=== PATIENT | female | born 1990 | race Caucasian/White ===

== ENCOUNTER 2024-08-08 12:07 | Emergency (ER) | payer MEDICAID, SELFPAY ==
--- NOTE | ~2024-08-08 | XR_ITS ---
EXAMINATION: XR CHEST 2 VIEWS HISTORY: sob/cough COMPARISON: There are no prior studies for comparison. FINDINGS: PA and lateral views of the chest are submitted. The lungs are expanded and clear. There is no pleural effusion, pneumothorax, or pulmonary vascular congestion. The heart is normal in size. The bones are intact. XR/XR chest 2V IMPRESSION: Clear lungs. Electronically signed by: Jesse Rodriguez MD 08/08/2024 01:08 PM DEMARIO LOPEZ
[2024-08-08 12:15] VITALS: BP 112/84; PULSE 117; O2SAT 97; BMI 39.1
[2024-08-08 12:21] VITALS: BP 112/76; PULSE 112; RESP 18; TEMP 36.9; O2SAT 93
[2024-08-08 12:29] LABS: MANUAL DIFF FLAG NO
[2024-08-08 12:30] LABS: Basophils Percent Auto 0.6 % (0-2); Eosinophils Absolute Auto 0.3 X10*3/uL (0.0-0.4); Eosinophils Percent Auto 5.3 % (0-4); Hematocrit 40.9 % (37.0-47.0); Hemoglobin 13.4 g/dl (12.0-16.0); Imm Gran Abs Auto 0.02 X10*3/uL (0.00-0.03); Imm Gran Pct Auto 0.4 % (0.0-0.4); Lymphocytes Absolute Auto 0.9 X10*3/uL (1.2-4.9); Lymphocytes Percent Auto 18.1 % (20-40); Mean Corpuscular HGB Conc 32.8 g/dl (31.0-35.0); Mean Corpuscular Hemoglobin 28.3 pg (27.0-33.0); Mean Corpuscular Volume 86.5 fL (80.0-98.0); Monocytes Absolute Auto 0.6 X10*3/uL (0.1-1.2); Monocytes Percent Auto 12.8 % (2-11); Neutrophils Absolute Auto 3.1 x10*3/uL (2.0-8.3); Neutrophils Percent Auto 62.8 % (45-73); Platelet Count 276 X10*3/uL (160-400); Red Blood Count 4.73 X10*6/uL (4.20-5.50); Red Cell Distribution Width 15.5 % (11.0-16.0); White Blood Count 4.9 X10*3/uL (4.8-10.8)
--- NOTE | 2024-08-08 12:42 | ED.GENADULT ---
HPI - General Adult General Chief complaint: Upper Respiratory Symptoms Stated complaint: FEVER,CHILLS,NAUSEA,MILD SOB,SEC 21 PER EMS Time Seen by Provider: 08/08/24 12:14 Source: patient Mode of arrival: ambulatory Limitations: no limitations History of Present Illness HPI narrative: This is a 34-year-old woman with a past medical history of asthma who was brought in by EMS from [facility] on a section for evaluation of fever, chills, myalgias, dyspnea and dry cough for 1 week. Patient states that she last used albuterol at around 11:00 a.m.. She states taking 3 puffs. She reports no sputum production. She states associated dyspnea without chest pain. She states no syncope. She states no GI or symptoms. She states no trauma. Related Data Previous Rx's ?Medication ?Instructions ?Recorded prednisone 50 mg tablet 50 mg PO DAILY 4 days #4 tabs 08/08/24 Allergies Allergy/AdvReac Type Severity Reaction Status Date / Time No Known Allergies Allergy Verified 08/08/24 12:17 Review of Systems Review of Systems: ROS as per HPI [facility] Social History Social History Advance Directives: No Advance Directives Information Provided: No Do you have a plan to hurt others: No Plan Physical Exam ED Vital Signs: Vital Signs - 24 hr 08/08/24 12:21 08/08/24 13:03 Temperature 98.5 F Pulse Rate 112 H 112 H Respiratory Rate 18 18 Blood Pressure 112/76 Pulse Oximetry 93 Oxygen Delivery Method Room Air BMI result Body Mass Index 39.1 Gen: NAD, AOx3 HEENT: NCAT, EOMI, normal conjunctiva CV: RRR Pulm: Scattered expiratory wheezes, good aeration to the bases, no conversational dyspnea, no increased work of breathing GI: Soft, NTND Neuro: Grossly non focal Medications Administered Discontinued Medications Generic Name Dose Route Start Last Admin Trade Name Freq PRN Reason Stop Dose Admin Albuterol Sulfate 4 puff 08/08/24 12:41 08/08/24 13:02 Albuterol Sulfate 90 Mcg 8 Gm Inhaler INHALE 08/08/24 12:42 4 puff ONCE ONE Administration Medical Decision Making Medical Decision Making [facility] Narrative: Differential diagnosis includes, but is not limited toViral URI, pneumonia, asthma exacerbation. Patient is afebrile and hemodynamically stable on room air. Exam is benign and reassuring albeit notable for scattered expiratory wheezes consistent with bronchospasm for which patient is provided corticosteroids and albuterol. I reviewed the patient's labs, EKG, viral testing and chest x-ray as below. On re-examination, patient is well-appearing and in no acute distress. There is no indication for further emergent evaluation in this otherwise well-appearing patient as above. Patient is provided written and verbal instructions, educational materials, prescription for prednisone, recommendations for outpatient follow-up, strict return precautions and teach back is performed. Patient states understanding and agreement with plan of care. Patient is discharged home in stable and improved condition. Admission/Observation Consideration of admission/observation: Escalation of care including admission/observation considered Lab Data MDM Lab Attestation statement: I reviewed the patient's lab results. CBC and metabolic panel are unremarkable. Patient is negative for COVID-19, influenza and RSV. 08/08/24 12:25 08/08/24 12:25 Labs: Lab Results 08/08/24 Range/Units 12:25 WBC 4.9 (4.8-10.8) X10*3/uL RBC 4.73 (4.20-5.50) X10*6/uL Hgb 13.4 (12.0-16.0) g/dl Hct 40.9 (37.0-47.0) % MCV 86.5 (80.0-98.0) fL MCH 28.3 (27.0-33.0) pg MCHC 32.8 (31.0-35.0) g/dl RDW 15.5 (11.0-16.0) % Plt Count 276 (160-400) X10*3/uL MPV 10.0 (9.4-12.3) fL Immature Gran % (Auto) 0.4 (0.0-0.4) % Neut % (Auto) 62.8 (45-73) % Lymph % (Auto) 18.1 L (20-40) % [place] % (Auto) 12.8 H (2-11) % Eos % (Auto) 5.3 H (0-4) % Baso % (Auto) 0.6 (0-2) % Lymph # (Auto) 0.9 L (1.2-4.9) X10*3/uL [place] # (Auto) 0.6 (0.1-1.2) X10*3/uL Eos # (Auto) 0.3 (0.0-0.4) X10*3/uL Baso # (Auto) 0.0 (0.0-0.2) X10*3/uL Abs Immat Gran (auto) 0.02 (0.00-0.03) X10*3/uL Absolute Neuts (auto) 3.1 (2.0-8.3) x10*3/uL Absolute Nucleated RBC 0.000 (0.0-0.012) X10*3/uL Nucleated RBC % (auto) 0.0 (0.0-0.2) /100WBC Sodium 136 (135-145) mmol/L Potassium 4.7 (3.3-5.1) mmol/L Chloride 107 (96-108) mmol/L Carbon Dioxide 24 (22-29) mmol/L Anion Gap 10 L (12-20) BUN 11 (9-16) mg/dL Creatinine 0.74 (0.5-1.4) mg/dL Estim Creat Clear Calc 118.7 Estimated GFR > 60 Random Glucose 99 (60-115) mg/dL Calcium 9.5 (8.4-10.2) mg/dL Total Bilirubin 0.3 (0.0-1.0) mg/dL AST 16 (5-31) U/L ALT 17 (0-31) U/L Alkaline Phosphatase 94 (39-117) U/L Total Protein 7.7 (6.5-8.0) g/dL Albumin 4.1 (3.5-5.0) g/dL Influenza Type A (PCR) NEGATIVE (Negative) Influenza Type B (PCR) NEGATIVE (Negative) RSV RNA Qual (PCR) NEGATIVE (Negative) SARS-CoV-2 RNA (RT-PCR) NEGATIVE (Negative) Independent Interpretation I performed an independent interpretation of an: EKG and Plain X-Ray Interpretation: EKG shows sinus tachycardia at 108 beats per minute, NC 136, QRS 74, QTC 434, no STEMI. Chest x-ray shows no pleural effusion, focal consolidation or pneumothorax. I independently reviewed and interpreted the patient's chest x-ray, which demonstrates no pleural effusion, focal consolidation or pneumothorax. Radiology Impression Discussion of test interpretation with radiology: I have reviewed the radiologist's reading. Radiologist Impression: XR/XR chest 2V IMPRESSION: Clear lungs. Electronically signed by: eJsse Rodriguez MD 08/08/2024 01:08 PM [facility] Dictated By: Jesse Rodriguez MD Signed By: <Electronically signed by Jesse Rodriguez MD in OV> 08/08/24 1308 Discharge Plan Discharge Clinical Impression: Asthma Patient Disposition: Xfer [facility] Transfer Details: Discharge on section back to [facility] Instructions: Asthma (ED) Additional Instructions: You were seen and evaluated in the emergency room. Your vital signs, blood work and chest x-ray were reassuring. You tested negative for COVID-19, Influenza and RSV. Your chest x-ray showed no evidence of pneumonia. You were given with albuterol and prednisone for your asthma. You are given a prescription for prednisone. This prescription has been sent to the [facility] on [facility] in [facility]. Please take as directed until completed. Your next dose should be taken tomorrow morning August 09, 2024. Please continue use 4 puffs of albuterol every 4 hours for the next 24 hours. After 24 hours, you can use 4 puffs of albuterol every 4 hours NEEDED for difficulty breathing or wheezing. Please follow-up with your primary care doctor in the next 5-7 days as needed. Please return to the emergency room if you develop any worsening symptoms. Prescriptions: New prednisone 50 mg tablet 50 mg PO DAILY 4 Days Qty: 4 0RF Print Language: Tamazight
--- NOTE | 2024-08-08 12:45 | ECG_ITS ---
Test Reason : dyspnea Blood Pressure : */* mmHG Vent. Rate : 108 BPM Atrial Rate : 108 BPM P-R Int : 136 ms QRS Dur : 74 ms QT Int : 324 ms P-R-T Axes : 57 40 55 degrees QTcB Int : 434 ms Sinus tachycardia Otherwise normal ECG No previous ECGs available Referred By: Amadou Archer Electronically Signed By: STEVEN BROWNING MD
[2024-08-08 12:47] LABS: Alanine Aminotransferase 17 U/L (0-31); Albumin Level 4.1 g/dL (3.5-5.0); Alkaline Phosphatase 94 U/L (39-117); Anion Gap 10 (12-20); Aspartate Amino Transferase 16 U/L (5-31); Bilirubin Total 0.3 mg/dL (0.0-1.0); Blood Urea Nitrogen 11 mg/dL (9-16); Calcium 9.5 mg/dL (8.4-10.2); Carbon Dioxide 24 mmol/L (22-29); Chloride 107 mmol/L (96-108); Creatinine Clr Calc Pharmacy 118.7; Estimated Glomerular Filt Rate > 60; Glucose Random 99 mg/dL (60-115); Potassium 4.7 mmol/L (3.3-5.1); Sodium 136 mmol/L (135-145); Total Protein 7.7 g/dL (6.5-8.0)
[2024-08-08] MEDS: Albuterol Sulfate 90 MCG 8 GM INHALER 4 PUFF INHALE (13:02)
[2024-08-08 13:03] VITALS: PULSE 112; RESP 18; O2SAT 97
[2024-08-08 13:14] LABS: Influenza A PCR NEGATIVE (Negative); Influenza B PCR NEGATIVE (Negative); Resp Syncy Virus RNA Qual PCR NEGATIVE (Negative); SARS COV2 PCR INHOUSE NEGATIVE (Negative)
[2024-08-08] MEDS: Lactated Ringers 1,000 ML 999 ML IV (13:50)
[2024-08-08 14:05] VITALS: BP 99/70; PULSE 107; RESP 14; TEMP 37.2; O2SAT 95
[2024-08-08] MEDS: methylPREDNISolone Sod Succ 125 MG/2 ML VIAL IVPUSH (14:11)
--- OUTSIDE RECORDS SUMMARY | 2024-08-08 15:08 | XMS_ITS ---
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 Name Role Phone Eldon Bowens Primary Care Provider REASON FOR VISIT [facility] MEDICATIONS Medication SIG (Take, Route, Frequency, Duration) Notes Start Date End Date Status Albuterol Sulfate HFA 108 (90 Base) MCG/ACT 2 puffs as needed Inhalation every 4 hrs Active Encounters Encounter Location Date Provider Diagnosis Eldon Bowens MD [address] [place] [address] [address] [place], [place] [id number] 06/17/2024 Eldon Bowens PLAN OF TREATMENT No Information Progress Notes * Mala FELICIANOOB: 2 (34 yo F)Acc No.[id number]:06/17/2024 Progress Notes Patient:??Matilde FELICIANO Provider:??Eldon Bowens MD :1990?Age:34 Y?Sex:Fe male Date:06/17/2024 Address:[address] [place] [address] [id number] Subjective: * Chief Complaints: * ?1. [facility]. * Medical History:?? * Medications:??Taking Albuter ol Sulfate HFA 108 (90 Base) MCG/ACT Aerosol Solution 2 puffs as needed Inhalation every 4 hrs Objective: Assessment: Plan: * Treatment: * Images: * Sign off status: Pending * Provider:??Eldon Bowens MD Date:? ?06/17/2024
--- OUTSIDE RECORDS SUMMARY | 2024-08-08 15:09 | XMS_ITS | Encounter Summary ---
Author Organization [facility] Address [address] [place] [address] Care Team Providers Care Paper Rewinder Operator Name Role Phone Eldon Bowens MD Primary Care Provider [phone] Reason for Visit * Reason Comments Mental Health Problem Encounter Details Date Type Department Care Team (Late st Contact Info) Description 08/07/2024 2:10 AM EST - 08/07/2024 4:04 PM EST Emergency [facility] [address] [place] [address] Wilfred Shetty, [address] [address] Jose Chang MD [address] [place] [id number] Dean Galicia [address] [address] Suicidal ideation (Primary Dx); Asthma, unspecified asthma severity, unspecified whether complicated, unspecified whether persistent Discharge Disposition: Short Term/Acute Care [facility] (02) Social History Tobacco Use Types Packs/Day Years Used Date Smoking Tobacco: Every Day Cigarettes 0.5 18.2 Started: 2006 Smokeless Tobacco: Never Alcohol Use Standard Drinks/Week Comments Not Currently 0 (1 standard drink = 0.6 oz pur e alcohol) occassionally Comments No Sex and Gender Information Value Date Recorded Sex Assigned at Female 02/08/2023 4:08 PM EDT Legal Sex Female 5:21 AM EDT Gender Identity Female 02/08/2023 4:08 PM EDT Sexual Orientation Straight 02/08/2023 4: 08 PM EDT documented as of this encounter Last Filed Vital Signs Vital Sign Reading Time Taken Comments Blood Pressure 120/90 08/07/2024 1:59 AM EST Pulse 100 08/07/2024 1:59 AM EST Temperature 36.8 ??C (98.2 ??F) 08/07/2024 1:59 AM ES T Respiratory Rate 20 08/07/2024 1:59 AM EST Oxygen Saturation 96% 08/07/2024 1:59 AM EST Inhaled Oxygen Concentration - - Weight 97.1 kg (214 lb) 08/07/2024 1:59 AM EST Height - - Body Mass Index 39.14 07/10/2024 7:00 PM EST documented in this encounter Medications at Time of Discharge acetaminophen (TYLENOL) 650 mg 8 hr tablet Take 650 mg by mouth every 6 hours as needed. 07/16/2024 diphenhydrAMINE (Banophen) 50 mg capsuleIndications :Generalized anxiety disorder,Insomnia, unspecified type Take 1 capsule (50 mg total) by mouth nightly as needed (sleep). 30 capsule 2 08/04/2024 QUEtiapine (SEROquel) 100 mg tabletIndications: Schizoaffective disorder, bipolar type (CMS/HCC) (HCC),PTSD (post-traumatic stress disorder) Take 1 tablet (100 mg total) by mouth daily as needed (agitation). 30 tablet 2 08/04/2024 QUEtiapine (SEROquel) 200 mg tabletIndications: Schizoaffective disorder, bipolar type (CMS/HCC) (HCC),PTSD (post-traumatic stress disorder) Take 1 tablet (200 mg total) by mouth every night. Take with 400 mg tablet for total of 600 mg 30 tablet 2 08/04/2024 QUEtiapine (SEROquel) 400 mg tabletIndications: Schizoaffective disorder, bipolar type (CMS/HCC) (HCC),PTSD (post-traumatic stress disorder) Take 1 tablet (400 mg) with 200 mg tablet by mouth nightly for a total of 600 mg 30 tablet 2 08/04/2024 QUEtiapine XR (SEROquel XR) 400 mg tabletIndications: Schizoaffective disorder, bipolar type (CMS/HCC) (HCC) Take 1 tablet (400 mg total) by mouth nightly. 30 tablet 2 04/07/2024 sertraline (ZOLOFT) 100 mg tabletIndications: Generalized anxiety disorder,PTSD (post-traumatic stress disorder) Take 1.5 tablets (150 mg total) by mouth once a day. 45 tablet 2 08/04/2024 documented as of this encounter ED Notes * Wilfred Shetty DO - 08/07/2024 1:46 AM EST HISTORY Chief Complaint Patient presents with Mental Health Problem HPI: Matilde Avendano is 34 y.o. female with history of asthma and depression who presents to the ED for evaluation for psychiatric evaluation due to suicidal ideation. Patient reports that she has been feeling increasingly depressed over the past 1 to 2 weeks. She was recently kicked out ofthe home by her mother. She reports that she is considering suicide by cutting her wrist. She indicates that if she were to go home she likely would act on her plan. She admits to using marijuana this evening but denies other drug or alcohol use. She relates that she has asthma and feels like she needs a breathing treatment. Otherwise she denies other physical symptoms at this time. 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 Depression School physical exam 08/03/2017 Past Surgical History: Procedure Laterality Date SECTION, LOW TRANSVERSE x 3 TUBAL LIGATION Current Facility-Administered Medications Medication Dose Route Frequency Provider Last Rate Last Admin acetaminophen (TYLENOL) tablet 650 mg 650 mg oral q6h PRN Wilfred Shetty DO albuterol (PROAIR HFA,VENTOLIN HFA) 90 mcg inhaler 180 mcg 2 puff inhalation q4h PRN Wilfred Shetty DO 180 mcg at 08/07/24 0310 diphenhydrAMINE (BENADRYL) capsule 50 mg 50 mg oral Nightly PRN Wilfred Shetty DO 50 mg at 08/07/24 0310 melatonin tablet 6 mg 6 mg oral Nightly PRN Wilfred Shetty DO 6 mg at 08/07/24 031 nicotine (NICODERM CQ) 14 mg/24 hr patch 1 patch 1 patch transdermal Daily Wilfred Shetty DO And Patch Placement Verification 1 patch 1 patch transdermal 3x daily Wilfred Shetty DO QUEtiapine (SEROquel) tablet 100 mg 100 mg oral Daily PRN Wilfred Shetty DO 100 mg at 08/07/24 0456 QUEtiapine (SEROquel) tablet 600 mg 600 mg oral Nightly Wilfred Shetty DO 600 mg at 08/07/24 0310 [START ON 08/08/2024] sertraline (ZOLOFT) tablet 150 mg 150 mg oral Daily Wilfred Shetty DO Current Outpatient Medications Medication Sig Dispense Refill acetaminophen (TYLENOL) 650 mg 8 hr tablet Take 650 mg by mouth every 6 hours as needed. diphenhydrAMINE (Banophen) 50 mg capsule Take 1 capsule (50 mg total) by mouth nightly as needed (sleep). 30 capsule 2 QUEtiapine (SEROquel) 100 mg tablet Take 1 tablet (100 mg total) by mouth daily as needed (agitation). 30 tablet 2 QUEtiapine (SEROquel) 200 mg tablet Take 1 tablet (200 mg total) by mouth every night. Take with 400 mg tablet for total of 600 mg 30 tablet 2 QUEtiapine (SEROquel) 400 mg tablet Take 1 tablet (400 mg) with 200 mg tablet by mouth nightly for a total of 600 mg 30 tablet 2 QUEtiapine XR (SEROquel XR) 400 mg tablet Take 1 tablet (400 mg total) by mouth nightly. 30 tablet 2 sertraline (ZOLOFT) 100 mg tablet Take 1.5 tablets (150 mg total) by mouth once a day. 45 tablet 2 Family History Problem Relation Age of Onset Depression Mother Asthma Sister Diabetes Maternal Grandmother Social History Tobacco Use Smoking status: Every Day Current packs/day: 0.50 Average packs/day: 0.5 packs/day for 18.2 years (9.1 ttl pk-yrs) Types: Cigarettes Start date: 2006 Smokeless tobacco: Never Vaping Use Vaping status: Never Used Substance Use Topics Alcohol use: Not Currently Comment: occassionally Drug use: Not Currently Types: Marijuana Comment: occasional use Review of systems: A ROS pertinent to the presenting complaint was performed, see HPI PHYSICAL EXAM ED Triage Vitals [08/07/24 0159] Temp Heart Rate Resp BP SpO2 36.8 ??C (98.2 ??F) 100 20 120/90 96 % Temp Source Heart Rate Source Patient Position BP Location Set FiO2 (O2%) Oral Pulse Oximeter Sitting Right arm -- Physical Exam GENERAL: Non-toxic appearing, in no distress HEENT: Normocephalic, atraumatic, mucous membranes moist EYES: No conjunctival injection, no discharge NECK: Supple, trachea midline, no JVD CHEST AND RESPIRATORY: no respiratory distress, speaking full sentences, slight wheezing in the bilateral upper lung [place], no crackles CARDIOVASCULAR: normal rate, regular rhythm, no murmurs, rubs,or gallops ABDOMEN: soft, non-tender, non-distended, no guarding, no rigidity no rebound tenderness MUSCULOSKELETAL: No apparent deformity SKIN: warm and dry, no concerning rash NEUROLOGIC: Awake and alert, moving all extremities PSYCHIATRIC: Appropriate speech and behavior, mood is depressed, affect is flat, no apparent hallucinations or delusions MEDICAL DECISION MAKING AND ED COURSE Patient has very slight wheezing in the upper lung [place] and requests an albuterol treatment. Thiswill be provided given her history of asthma but I have low suspicion that she has any serious respiratory illness, speaks full sentences and breathing easily, good saturation and vitals. The patient's medical screening exam does not show signs of an organic illness that requires medical hospitalization or emergency treatment or surgery. The patient will [facility] on Section [facility] Course as of 08/07/24 0856 [facility] Aug 07, 2024 0856 Patient signed out to Dr. Salvador pending [facility] evaluation [DS] ED Course User Index [DS] Wilfred Shetty, Medications nicotine (NICODERM CQ) 14 mg/24 hr patch 1 patch (has no administration in time range) And Patch Placement Verification 1 patch (1 patch transdermal Patch Not Found 08/07/24 0300) melatonin tablet 6 mg (6 mg oral Given 08/07/24 0310) QUEtiapine (SEROquel) tablet 100 mg (100 mg oral Given 08/07/24 0456) QUEtiapine (SEROquel) tablet 600 mg (600 mg oral Given 08/07/24 0310) acetaminophen (TYLENOL) tablet 650 mg (has no administration in time range) diphenhydrAMINE (BENADRYL) capsule 50 mg (50 mg oral Given 08/07/24309) sertraline (ZOLOFT) tablet 150 mg (has no administration in time range) albuterol (PROAIR HFA,VENTOLIN HFA) 90 mcg inhaler 180 mcg (180 mcg inhalation Given 08/07/24309) Labs Reviewed RAPID COVID-19 RNA FOR SURVEILLANCE (ED ONLY) - Normal Result Value PCR, SARS CoV-2 RNA Not Detected Narrative: This test was developed, validated and its performance characteristics determined by [facility]. This test has not been cleared or approved by the U.S. Food and Drug Administration (FDA). FDA Policy for Diagnostic Tests for Coronavirus Disease-2019 during the Public Health Emergency [facility]2019, is followed. No orders to display The primary encounter diagnosis was Suicidal ideation. A diagnosis of Asthma, unspecified asthma severity, unspecified whether complicated, unspecified whether persistent was also pertinent to this visit. Wilfred Shetty DO 08/07/24 0856 documented in this encounter Miscellaneous Notes * ED Continuation of Care - Dean Galicia DO - 08/07/2024 3:43 PM EST ED Continuation of Care 08/07/24 3:43 PM Sign out from Dr. Jose Chang Md Assessment and Plan: Patient accepted to [facility] by Dr. Larios ED Course as of 08/07/24 1543 [facility] Aug 07, 2024 0856 Patient signed out to Dr. Salvador pending [facility] evaluation [DS] ED Course User Index [DS] Wilfred Shetty DO Matilde Francois Juan Alberto : 1990 CSN: [id number] * ED Continuation of Care - Jose Chang MD - 08/07/2024 12:04 PM EST ED Continuation of Care 08/07/24 12:04 PM Sign out from Dr. Wilfred Shetty Do Patient discussed with [facility] clinician This patient is a 34 y.o. female here with: JT - Presenting BH Problem: Suicidal. Section XIIa (going forward): Yes Suicide Risk (in the ED): No Risk Suicide Risk (in the Community): Moderate Planned Disposition: IPBS - General [facility] ED Course as of 08/07/24 1204 [facility] Aug 07, 2024 0856 Patient signed out to Dr. Salvador pending [facility] evaluation [DS] ED Course User Index [DS] Wilfred Shetty DO Matilde Avendano : 1990 CSN: [id number] documented in this encounter Plan of Treatment Not on file documented as of this encounter Procedures * Due to [place] [employer] law, this organization might not be sharing negative HIV tests. Procedure Name Priority Date/Time Associated Diagnosis Comments RAPID COVID-19 RNA FOR SURVEILLANCE (ED ONLY) STAT 08/07/2024 3:20 AM EST documented in this encounter Results * Due to [facility] law, this organization might not be sharing negative HIV tests. * Rapid COVID-19 for Surveillance - Psych/Admission (08/07/2024 3:20 AM EST) Pathologist [facility] PCR, SARS CoV-2 RNA Not Detected Not Detected [employer] 08/07/2024 3:55 AM EST [facility] Comment:A Not Detected (Nega tive) test result is indicative of the absence of SARS-CoV-2 RNA at the level of LoD (Limit of Detection). A negative result does not rule out the possibility of COVID-19 and should not be used as the sole basis for treatment or patient management decisions. If COVID-19 is still suspected, based on exposure history together with other clinical findings, re-testing should be considered. Swab (Nares) Non-Blood Collection / Unknown 08/07/2024 3:20 AM EST 08/07/2024 3:22 AM EST Narrative [facility] - 08/07/2024 3:55 AM EST This test was developed, validated and its performance characteristics determined by [facility]. This test has not been cleared or approved by the U.S. Food and Drug Administration (FDA). FDA Policy for Diagnostic Tests for Coronavirus Disease-2019 during the Public Health Emergency issued August 18, 2019, is followed. us Wilfred Shetty DO LAB BODY FLUIDS AND STOOLS OR DERABLES Final Result [facility] [address] [place] [address], documented in this encounter Visit Diagnoses Diagnosis Suicidal ideation- Primary Asthma, unspecified asthma severity, unspecified whether complicated, unspecified whether persistent documented in this encounter Administered Medications Inactive Administered Medications - up to 3 most recent administrations Medication Order MAR Action Action Date Dose Rate Site albuterol (PROAIR HFA,VENTOLIN HFA) 90 mcg inhaler 180 mcg 180 mcg (2 puff), inhalation, Every 4 hours PRN, wheezing, shortness of breath, Starting on Sun08/07/24 at 0259, Until Sun08/07/24 at 1814, Is this a respiratory protocol order? No Given 08/07/2024 3:10 AM EST 180 mcg diphenhydrAMINE (BENADRYL) capsule 50 mg 50 mg, oral, Nightly PRN, sleep, Starting on Sun08/07/24 at 0257, Until Sun08/07/24 at 1814 Given 08/07/2024 3:10 AM EST 50 mg melatonin tablet 6 mg 6 mg, oral, Nightly PRN, sleep, Starting on Sun08/07/24 at 0255, Until Sun08/07/24 at 1814 Given 08/07/2024 3:10 AM EST 6 mg nicotine (NICODERM CQ) 14 mg/24 hr patch 1 patch 1 patch, transdermal, Administer over 24 Hours, Daily, First dose on Sun08/07/24 at 0900, Until Discontinued Patch Applied 08/07/2024 9:07 AM EST 1 patch Right Arm Patch Placement Verification 1 patch 1 patch, transdermal, TID Patch Placement Verification, First dose on Sun08/07/24 at 0300, Until Discontinued QUEtiapine (SEROquel) tablet 100 mg 100 mg, oral, Daily PRN, agitation, Starting on Sun08/07/24 at 0255, Until Sun08/07/24 at 1814 Given 08/07/2024 4:56 AM EST 100 mg QUEtiapine (SEROquel) tablet 600 mg 600 mg, oral, Nightly, First dose on Sun08/07/24 at 0300, Until Discontinued Given 08/07/2024 3:10 AM EST 600 mg documented in this encounter Active and Recently Administered Medications Times are shown in EST. Scheduled Medication Order 08/05/2024 08/06/2024 08/07/2024 nicotine (NICODERM CQ) 14 mg/24 hr patch 1 patch(Linked Group 1) 1 patch, transdermal, Administer over 24 Hours, Daily, First dose on Sun08/07/24 at 0900, Until Discontinued 0907 (Patch Applied - Provider: Erika Parson RN)1604 (Due: Patch Removed - Provider: Automatic Discharge Provider - Comment: Time automatically adjusted from order being discontinued) Patch Placement Verification 1 patch(Linked Group 1) 1 patch, transdermal, TID Patch Placement Verification, First dose on Sun08/07/24 at 0300, Until Discontinued 0300 (Patch Not Foun d - Provider: Adia De León RN)0900 (Patch Present - Provider: Erika Parson RN) QUEtiapine (SEROquel) tablet 600 mg 600 mg, oral, Nightly, First dose on Sun08/07/24 at 0300, Until Discontinued 0310 (Given - Provid er: Adia De León RN) sertraline (ZOLOFT) tablet 150 mg 150 mg, oral, Daily, First dose on Sun08/08/24 at 0900, Until Discontinued PRN Medication Order 08/05/2024 08/06/2024 08/07/2024 acetaminophen (TYLENOL) tablet 650 mg 650 mg, oral, Every 6 hours PRN, Mild pain or 1-3 (on the numeric pain scale), Moderate pain or 4-6 (on the numeric pain scale), headache, Starting on Regla 08/07/24 at 0257, Until Regla 08/07/24 at 181 albuterol (PROAIR HFA,VENTOLIN HFA) 90 mcg inhaler 180 mcg 180 mcg (2 puff), inhalation, Every 4 hours PRN, wheezing, shortness of breath, Starting on Regla 08/07/24 at 0259, Until Regla 08/07/24 at 181, Is this a respiratory protocol order? No 0310 (Given - Provid er: Adia De León RN) diphenhydrAMINE (BENADRYL) capsule 50 mg 50 mg, oral, Nightly PRN, sleep, Starting on Regla 08/07/24 at 0257, Until Regla 08/07/24 at 1813 0310 (Given - Provid er: Adia De León RN) melatonin tablet 6 mg 6 mg, oral, Nightly PRN, sleep, Starting on Sun08/07/24 at 0255, Until Regla 08/07/24 at 1813 0310 (Given - Provid er: Adia De León RN) QUEtiapine (SEROquel) tablet 100 mg 100 mg, oral, Daily PRN, agitation, Starting on Sun08/07/24 at 0255, Until Regla 08/07/24 at 181 0456 (Given - Provid er: Adia De León RN) Linked Groups Order Group 1: nicotine (NICODERM CQ) 14 mg/24 hr patch 1 patchJump to med 1 patch, transdermal, Administer over 24 Hours, Daily, First dose on Regla 08/07/24 at 0900, Until Discontinued And Patch Placement Verification 1 patchJump to med 1 patch, transdermal, TID Patch Placement Verification, First dose on Sun08/07/24 at 0300, Until Discontinued documented in this encounter Care Teams Paper Rewinder Operator Relationship Specialty Start Date End Date Eldon Bowens MD PCP - General Family Medicine 11/25/20 documented as of this encounter
--- OUTSIDE RECORDS SUMMARY | 2024-08-08 15:09 | XMS_ITS | Clinical Summary ---
Author Organization [facility] Address [address] [place] [address] Care Team Providers [employer] Pilot Name Role Phone Eldon Bowens MD Primary Care Provider [phone] Allergies No known active allergies Medications * This document contains information received from the source organization and may not represent a complete record from that organization. QUEtiapine XR (SEROquel XR) 400 mg tabletIndicatio ns:Schizoaffect pauly disorder, bipolar type (CMS/HCC) (HCC) Take 1 tablet (400 mg total) by mouth nightly. 30 tablet 2 04/07/20 24 Active acetaminophen (TYLENOL) 650 mg 8 hr tablet Take 650 mg by mouth every 6 hours as needed. 07/16/19 25 Active QUEtiapine (SEROquel) 200 mg tabletIndicatio ns:Schizoaffect pauly disorder, bipolar type (CMS/HCC) (HCC),PTSD (post-traumatic stress disorder) Take 1 tablet (200 mg total) by mouth every night. Take with 400 mg tablet for total of 600 mg 30 tablet 2 08/05/19 25 Active QUEtiapine (SEROquel) 100 mg tabletIndicatio ns:Schizoaffect pauly disorder, bipolar type (CMS/HCC) (HCC),PTSD (post-traumatic stress disorder) Take 1 tablet (100 mg total) by mouth daily as needed (agitation). 30 tablet 2 08/05/19 25 Active QUEtiapine (SEROquel) 400 mg tabletIndicatio ns:Schizoaffect pauly disorder, bipolar type (CMS/HCC) (HCC),PTSD (post-traumatic stress disorder) Take 1 tablet (400 mg) with 200 mg tablet by mouth nightly for a total of 600 mg 30 tablet 2 08/05/19 25 Active diphenhydrAMINE (Banophen) 50 mg capsuleIndicati ons:Generalized anxiety disorder,Insomn ia, unspecified type Take 1 capsule (50 mg total) by mouth nightly as needed (sleep). 30 capsule 2 08/05/19 25 Active sertraline (ZOLOFT) 100 mg tabletIndicatio ns:Generalized anxiety disorder,PTSD (post-traumatic stress disorder) Take 1.5 tablets (150 mg total) by mouth once a day. 45 tablet 2 08/05/19 25 Active haloperidoL (HALDOL) 10 mg tabletIndicatio ns:Schizoaffect pauly disorder, bipolar type (CMS/HCC) (HCC) Take 1 tablet (10 mg total) by mouth 2 times a day. 60 tablet 2 04/07/20 24 025 Discontinued(Di scontinued by another clinician) traZODone (DESYREL) 150 mg tabletIndicatio ns:Insomnia, unspecified type Take 1 tablet (150 mg total) by mouth nightly. 30 tablet 2 04/07/20 24 025 Discontinued(Di scontinued by another clinician) sertraline (Zoloft) 50 mg tabletIndicatio ns:Schizoaffect pauly disorder, bipolar type (CMS/HCC) (HCC),Generaliz ed anxiety disorder Take 1 tablet (50 mg total) by mouth once a day. Take with 100 mg for a total of 150 mg per day 30 tablet 2 05/19/20 24 025 Discontinued(Di scontinued by another clinician) sertraline (Zoloft) 100 mg tabletIndicatio ns:Schizoaffect pauly disorder, bipolar type (CMS/HCC) (HCC),Generaliz ed anxiety disorder Take 1 tablet (100 mg total) by mouth once a day. Take with 50 mg for a total of 150 mg per day 30 tablet 2 05/19/20 24 025 Discontinued busPIRone (BUSPAR) 10 mg tabletIndicatio ns:Generalized anxiety disorder Take 1 tablet (10 mg total) by mouth 2 (two) times a day. 60 tablet 2 05/19/20 24 025 Discontinued(Di scontinued by another clinician) prazosin (MINIPRESS) 1 mg capsuleIndicati ons:PTSD (post-traumatic stress disorder) Take 1 capsule (1 mg total) by mouth nightly. Hold if Blood Pressure is less than 90/60 or if heart rate is less than 60 90 capsule 06/26/19 25 025 Discontinued(Di scontinued by another clinician) predniSONE (DELTASONE) 50 mg tablet Take 1 tablet (50 mg total) by mouth once a day for 4 days. 4 tablet 07/11/19 25 025 LORazepam (ATIVAN) 0.5 mg tablet Take 0.5 mg by mouth 2 times a day as needed for anxiety. 07/16/19 25 025 Discontinued(Th erapy Completed or No Longer Needed) sertraline (Zoloft) 100 mg tabletIndicatio ns:Generalized anxiety disorder,PTSD (post-traumatic stress disorder) Take 1.5 tablets (150 mg total) by mouth once a day. Take with 50 mg for a total of 150 mg per day 45 tablet 2 08/05/19 25 025 Discontinued Active Problems Problem Noted Date Diagnosed Date Insomnia 10/16/2023 Schizoaffective disorder, bipolar type (CMS/[facility]) 09/28/2023 Unknown substance dependence, continuous use 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 Moderate episode of recurrent major depressive d isorder 01/08/2023 Generalized anxiety disorder 01/08/2023 Encounter for long-term (current) use of medicat ions 01/08/2023 Resolved Problems Problem Noted Date Diagnosed Date Resolved Date Antipsychotic-induced akathisia 10/16/2023 04/08/2024 School physical exam 08/03/2017 024 Encounters * This document contains information received from the source organization and may not represent a complete record from that organization. Date Type Department Care Team Description 08/07/2024 2:10 AM EST - 08/07/2024 4:04 PM EST Emergency [facility] [facility] [address] [place] [address] Wilfred Shetty, Jose Molina MD Volturo, Jesse C., Suicidal ideation (Primary Dx); Asthma, unspecified asthma severity, unspecified whether complicated, unspecified whether persistent Discharge Disposition: Short Term/Acute Care [facility] (02) 06/02/2024 Patient Outreach [facility] [address] [facility] [address] [place] [address] Eldon Bowens MD from Last 3 Months Immunizations Immunization Administration Dates Next Due Influenza, Injectable, Quadr ivalent, Contains Preservative 06/26/2017 Tetanus Toxoid, Reduced Diph theria Toxoid, and Acellular Pertussis Vaccine, Adsorbed 09/02/2023,06/26/2017 Family History Medical History Relation Name Comments Diabetes Maternal Grandmother Depression Mother Asthma Sister Relation Name Status Comments Maternal Grandmother Mother Sister Social History Tobacco Use Types Packs/Day Years Used Date Smoking Tobacco: Every Day Cigarettes 0.5 18.2 Started: 2006 Smokeless Tobacco: Never Tobacco Cessation:Ready to Q uit: Not Asked; Counseling Given: Not Answered Alcohol Use Standard Drinks/Week Comments Not Currently 0 (1 standard drink = 0.6 oz pur e alcohol) occassionally Comments No Sex and Gender Information Value Date Recorded Sex Assigned at Female 02/08/2023 4:08 PM EDT Legal Sex Female 5:21 AM EDT Gender Identity Female 02/08/2023 4:08 PM EDT Sexual Orientation Straight 02/08/2023 4: 08 PM EDT Last Filed Vital Signs Vital Sign Reading Time Taken Comments Blood Pressure 120/90 08/07/2024 1:59 AM EST Pulse 100 08/07/2024 1:59 AM EST Temperature 36.8 ??C (98.2 ??F) 08/07/2024 1:59 AM ES T Respiratory Rate 20 08/07/2024 1:59 AM EST Oxygen Saturation 96% 08/07/2024 1:59 AM EST Inhaled Oxygen Concentration - - Weight 97.1 kg (214 lb) 08/07/2024 1:59 AM EST Height 157.5 cm (5' 2 ) 07/10/2024 7:00 PM EST Body Mass Index 39.14 07/10/2024 7:00 PM EST Plan of Treatment Health Maintenance Due Date Last Done Comments HIV Screening 1990 Hepatitis C Screening 1990 Varicella Vaccines (1 of 2 - 13+ 2-dose series) 01/04/2005 Hepatitis B Vaccines (1 of 3 - 19+ 3-dose series) 01/04/2011 Pneumococcal Vaccine: Pediat kel (0-5 Years) and At-Risk Patients (6-50 Years) (1 of 2 - PCV) 01/04/2011 Pap Smear 11/13/2023 11/12/2020 COVID-19 Vaccine (1 - season) 2024 Influenza Vaccine (#1) 2024 06/26/2017 Alcohol/Substance Use Screening 06/04/2024 Depression Evaluation 06/04/2024 Social Drivers of Health Annual Screening 06/04/2024 Cervical Cancer Screening 11/12/2025 HPV and Pap Smear 11/12/2025 11/12/2020 DTaP,Tdap,and Td Vaccines (3 - Td or Tdap) 09/01/2033 09/02/2023, 06/26/2017 RSV Vaccine (60+ years old a nd patients) (1 - 1-dose 75+ series) 01/04/2067 Procedures * Due to [place] Scal[place] law, this organization might not be sharing negative HIV tests. Procedure Name Priority Date/Time Associated Diagnosis Comments RAPID COVID-19 RNA FOR SURVEILLANCE (ED ONLY) STAT 08/07/2024 3:20 AM EST DRUGS OF ABUSE SCREEN, URINE STAT 07/11/2024 10:07 AM EST MVL QS - COVID-19, FLU A/B & RSV RNA PCR, SYMPTOMATIC STAT 07/10/2024 7:45 PM EST PAP W/REFLEX HPV, OUTSIDE LAB Routine 11/12/2020 from Last 3 Months or Most Recently Relevant to Health Maintenance Results * Due to [place] law, this organization might not be sharing negative HIV tests. * Rapid COVID-19 for Surveillance - Psych/Admission (08/07/2024 3:20 AM EST) PCR, SARS CoV-2 RNA Not Detected Not Detected [employer] 08/07/2024 3:55 AM EST [facility] Comment:A Not Detected (Nega tive) test [...] AM EST 08/07/2024 3:22 AM EST Narrative [facility] - 08/07/2024 3:55 AM EST This test was developed, validated and its performance characteristics determined by [facility]. This test has not been cleared or approved by the U.S. Food and Drug Administration (FDA). FDA Policy for Diagnostic Tests for Coronavirus Disease-2019 during the Public Health Emergency issued August 18, 2019, is followed. Wilfred Shetty DO LAB BODY FLUIDS AND STOOLS OR DERABLES Final Result [facility] [address] [place] [address], * (ABNORMAL) Drugs of Abuse Screen, Urine (07/11/2024 10:07 AM EST) Amphetamine Screen, Urine Negative Negative 07/11/2024 10:57 AM EST [facility] Comment: Detection limit of 1000 ng/mL of d-Methamphetamine. Drug results are to be used only for medical purposes. ??Unconfirmed screening results must not be used for non-medical purposes. Barbiturate Screen, Urine Negative Negative 07/11/2024 10:57 AM EST [facility] Comment: Detection limit of 200 ng/mL of Secobarbital. Drug results are to be used only for medical purposes. ??Unconfirmed screening results must not be used for non-medical purposes. Benzodiazepine Screen, Urine Negative Negative 07/11/2024 10:57 AM [facility] Comment: Detection limit of 200 ng/mL of Nordiazepam. Drug results are to be used only for medical purposes. ??Unconfirmed screening results must not be used for non-medical purposes. Buprenorphine Screen, Urine Negative Negative 07/11/2024 10:57 AM [facility] Comment: Detection limit of 10 ng/mL of norbuprenorphine. Drug results are to be used only for medical purposes. ??Unconfirmed screening results must not be used for non-medical purposes. Cocaine Metabolite Screen, Urine Negative Negative 07/11/2024 10:57 AM [facility] Comment: Detection limit of 300 ng/mL of Benzoylecgonine. Drug results are to be used only for medical purposes. ??Unconfirmed screening results must not be used for non-medical purposes. Marijuana Screen, Urine Presumptive Positive(A) Negative 07/11/2024 10:57 AM [facility] Comment: Detection limit of 50 ng/mL of 14-Jbm-dlqen-4-TWO-1-carboxylic acid. Drug results are to be used only for medical purposes. ??Unconfirmed screening results must not be used for non-medical purposes. Methadone Metabolite Screen, Urine Negative Negative 07/11/2024 10:57 AM [facility] Comment: Detection limit of 300 ng/mL of Methadone. Drug results are to be used only for medical purposes. ??Unconfirmed screening results must not be used for non-medical purposes. Oxycodone Screen, Urine Negative Negative 07/11/2024 10:57 AM [facility] Comment: Detection limit of 100 ng/mL of Oxycodone. Drug results are to be used only for medical purposes. ??Unconfirmed screening results must not be used for non-medical purposes. Opiate Screen, Urine Negative Negative 07/11/2024 10:57 AM [facility] Comment: Detection limit of 300 ng/mL of Morphine. Drug results are to be used only for medical purposes. ??Unconfirmed screening results must not be used for non-medical purposes. Fentanyl Screen, Urine Negative Negative 07/11/2024 10:57 AM EST [facility] Comment: Detection limit of 5 ng/mL of norfentanyl. Drug results are to be used only for medical purposes. ??Unconfirmed screening results must not be used for non-medical purposes. Urine Urine specimen collection, clean catch / Unknown Non-Blood Collection / Unknown 07/11/2024 10:07 AM EST 07/11/2024 10:12 AM EST us Mason Batista MD LAB URINE ORDERABLES Final Re sult [facility] [address] [place] [address], * COVID-19, Flu A/B & RSV RNA PCR, Symptomatic (07/10/2024 7:45 PM EST) [facility] PCR, SARS CoV-2 RNA Not Detected Not Detected [facility] 07/10/2024 8:33 PM EST [facility] Comment:A Not Detected (Nega tive) test [...] other clinical findings, re-testing should be considered. Flu A RNA PCR Not Detected Not Detected [employer] [facility]EXP[facility] 07/10/2024 8:33 PM EST [facility] Comment:Negative results do not preclude infection and should not be used as the sole basis for diagnosis, treatment or other patient management decisions. Negative results must be combined with clinical observations, patient history, and/or epidemiological information. Flu B RNA PCR Not Detected Not Detected [employer] [facility] 07/10/2024 8:33 PM EST [facility] Comment:Negative results do not preclude infection and should not be used as the sole basis for diagnosis, treatment or other patient management decisions. Negative results must be combined with clinical observations, patient history, and/or epidemiological information. RSV RNA PCR Not Detected Not Detected [employer] GENEXPERT 07/10/2024 8:33 PM EST [facility] Comment:Negative results do not preclude infection and should not be used as the sole basis for diagnosis, treatment or other patient management decisions. Negative results must be combined with clinical observations, patient history, and/or epidemiological information. Swab (Nares) Non-Blood Collection / Unknown 07/10/2024 7:45 PM EST 07/10/2024 7:53 PM EST Narrative [facility] - 07/10/2024 8:33 PM EST This test was developed, validated and its performance characteristics determined by [facility]. This test has not been cleared or approved by the U.S. Food and Drug Administration (FDA). FDA Policy for Diagnostic Tests for Coronavirus Disease-2019 during the Public Health Emergency issued August 18, 2019, is followed. Janelle Vázquez MD LAB BODY FLUIDS AND STOOLS TYLORE CHRIS Final Result [facility] [address] [place] [address], * Pap w/Reflex HPV, Outside Lab (11/12/2020) Brushing Cervix uteri structure / Unknown Eldon Bowens MD LAB PATHOLOGY/CYTOLOGY ORDERA BLES Final Result from Last 3 Months or Most Recently Relevant to Health [place] [id number] [place] [facility] Care Teams Corporation Pilot Relationship Specialty Start Date End Date Eldon Bowens MD PCP - General Family Medicine 11/25/20
--- OUTSIDE RECORDS SUMMARY | 2024-08-08 15:09 | XMS_ITS | Patient Health Record ---
Author Organization Eldon Bowens MD Address [address] [facility] [address] [place], [place] [id number] Care Team Providers Care Wellness Program Manager Name Role Phone Eldon Bowens Primary Care Provider [phone] ALLERGIES No Known Allergies REASON FOR REFERRAL No Information MEDICATIONS Medication SIG (Take, Route, Frequency, Duration) Notes Start Date End Date Status Albuterol Sulfate HFA 108 (90 Base) MCG/ACT 2 puffs as needed Inhalation every 4 hrs Active IMMUNIZATIONS Vaccine Route Administration Date Status Comme nts COVID-19 Moderna Unknown 07/14/2021 Administered COVID-19 Moderna Bivalent Unknown 05/10/2022 Administer ed COVID-19 Pfizer Unknown 10/15/2020 Administered COVID-19 Pfizer Unknown 11/05/2020 Administered Hepatitis A (adult) Unknown 07/27/2021 Administered Influenza (our stock) IM Intramuscular 03/28/2018 Administ ered Influenza (our stock) IM Intramuscular 05/06/2019 Administ ered Influenza (pharmacy) Unknown 06/26/2017 Administered Influenza (pharmacy) Unknown 03/17/2022 Administered Tdap Unknown 06/26/2017 Administered SOCIAL HISTORY Tobacco Use: Social History Observation Description Date Details (start date - stop date) Current Smoker NA - NA Sex Assigned At : Social History Observation Description Sex Assigned At Unknown Tobacco use: Question Answer Notes Are you a current smoker How many cigarettes a day do you smoke? 11-20 Alcohol Screen Question Answer Notes Did you have a drink containing alcohol in the p ast year? No Points 0 Interpretation Negative Section Notes: Single, 3 children, has no c ustody of them. Unemployed. Smokes 5-10 cigarettes a day, started to smoke at the age of 17, 10-15 pack-year history since age 17. No alcohol. Smoke cannabis. Denies drug abuse. Single, 3 children, has no c ustody of them. Unemployed. Smokes 5-10 cigarettes a day, started to smoke at the age of 17, 10-15 pack-year history since age 17. No alcohol. Smoke cannabis. Denies drug abuse. Single, 3 children, has no c ustody of them. Unemployed. Smokes 5-10 cigarettes a day, started to smoke at the age of 17, 10-15 pack-year history since age 17. No alcohol. No cannabis. Denies drug abuse. Single, 3 children, has no c ustody of them. Unemployed . Smokes 10-20 a day since age 17, previously more. No alcohol. Smoke cannabis. Denies drug abuse. Single, 3 children, lives wi th her mother. 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 Smokes less than 5 a day since age 17, previously more. No alcohol. Does not smoke cannabis. No history of drug abuse. Single, 3 children, lives wi th her mother. 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 Does not smoke. No alcohol. Does not smoke cannabis. No history of drug abuse. PROBLEMS Problem Type ICD Code Onset Dates Problem Status W/U Status Risk SNOMED Code Notes Problem Nicotine dependence, unspecified, uncomplicated (F17.200) Active confirmed Tobacco user (913340025) Problem Other obesity due to excess calories (E66.09) Active confirmed Obesity du e to excess calories (948802671) Problem Bipolar disorder, unspecified (F31.9) Active confirmed Bipolar disorde r (60953939) Problem Unspecified asthma, uncomplicated (J45.909) Active confirmed Uncomplicated asthma (disorder) (504440687) Problem Acne vulgaris (L70.0) Active confirmed Acne vulgaris (06489291) Problem Irregular menstruation, unspecified (N92.6) Active confirmed Irregular menstruation (08669450) Encounters Encounter Location Date Provider Diagnosis Eldon Bowens MD [address] [place] [address] [address] [place], [place] [phone] 10/03/2023 Eldon Bowens MD [address] [place] [address] [address] [place], [place] [phone] 01/22/2024 Eldon Bowens MD [address] [facility] [address] [place], [place] [id number] 02/26/2024 Eldon Bowens MD [address] [facility] [address] [place], [place] [id number] 03/25/2024 Eldon Bowens MD [address] [facility] [address] [place], [place] [phone] 06/17/2024 Eldon Bowens MD [address] [facility] [address] [place], [place] [id number] 07/22/2024 Eldon Bowens MD [address] [facility] [address] [place], [place] [id number] 09/25/2023 Eldon Bowens MD [address] [facility] [address] [place], [place] [id number] 02/07/2024 Eldon Bowens PLAN OF TREATMENT No Information Insurance Providers Payer Name Payer Address Payer Phone Subscriber Number Group Number Insured Name Patient Relationship to Insured Coverage Start Date Coverage End Date [place] of [place] [address] [place] [id number] Matilde Denins Self - patient is the insured MEDICATIONS ADMINISTERED Medication Instructions Date of Administration Dosage Notes Depo-Provera 08/09/2022 1 mL patient brou ght in depo Depo-Provera 10/26/2022 1 mL Patient brou ght RX MEDICAL (GENERAL) HISTORY Medical History History ICD Code depression/bipolar disorder obesity asthma Smoking addiction Surgical History Surgery Date(Month/Year) x3, tubal ligation LEEP 2021 Hospitalization History Reason Date(Month/Year) Inpatient psychiatric hospitalizations
--- OUTSIDE RECORDS SUMMARY | 2024-08-08 15:09 | XMS_ITS ---
Author Organization Eldon Bowens MD Address [address] [facility] [address] [place], [place] [id number] Care Team Providers Care Hydraulics Teacher Name Role Phone Eldon Bowens Primary Care Provider REASON FOR VISIT [facility] d/c 03/20/24 MEDICATIONS Medication SIG (Take, Route, Frequency, Duration) Notes Start Date End Date Status Albuterol Sulfate HFA 108 (90 Base) MCG/ACT 2 puffs as needed Inhalation every 4 hrs Active Encounters Encounter Location Date Provider Diagnosis Eldon Bowens MD [address] [place] [address] [address] [place], [place] [phone] 03/25/2024 Eldon Bowens PLAN OF TREATMENT No Information Progress Notes * Mala FELICIANOOB: 2 (34 yo F)Acc No.[id number]:03/25/2024 Progress Notes Patient:??Matilde FELICIANO Provider:??Eldon Bowens MD PC :1990?Age:34 Y?Sex:Fe male Date:03/25/2024 Address:[address] [place], [place] [phone] Subjective: * Chief Complaints: * ?1. [facility] d/c . * Medical History:?? * Medications:??Taking Albuter ol Sulfate HFA 108 (90 Base) MCG/ACT Aerosol Solution 2 puffs as needed Inhalation every 4 hrs Objective: Assessment: Plan: * Treatment: * Images: * Sign off status: Pending * Provider:??Eldon Bowens MD Date:? ?03/25/2024
--- OUTSIDE RECORDS SUMMARY | 2024-08-08 15:09 | XMS_ITS | Referral Summary ---
Author Organization [facility] Address [address] [place] [address] Care Team Providers Care Design Intern Name Role Phone Eldon Bowens MD Primary Care Provider [phone] Encounters * This document contains information received from the source organization and may not represent a complete record from that organization. Date Type Department Care Team Description 08/07/2024 2:10 AM EST - 08/07/2024 4:04 PM EST Emergency [facility] [place] [facility] Emergency Department [address] [place] [address] Wilfred Shetty, Jose Molina MD Volturo, Jesse C., DO Suicidal ideation (Primary Dx); Asthma, unspecified asthma severity, unspecified whether complicated, unspecified whether persistent Discharge Disposition: Short Term/Acute Care [facility] () 06/02/2024 Patient Outreach [facility] [address] [facility] [address] [place] [address] Eldon Bowens MD from Last 3 Months Allergies No known active allergies Medications * [...] tabletIndicatio ns:Schizoaffect pauly disorder, bipolar type (CMS/HCC) ([facility]),Generaliz ed anxiety disorder Take 1 tablet (100 [...] Date Insomnia 10/16/2023 Schizoaffective disorder, bipolar type (CMS/HCC) 09/28/2023 Unknown substance dependence, continuous use 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 Moderate episode of recurrent major depressive d isorder 01/08/2023 Generalized anxiety disorder 01/08/2023 Encounter for long-term (current) use of medicat ions 01/08/2023 Resolved Problems Problem Noted Date Diagnosed Date Resolved Date Antipsychotic-induced akathisia 10/16/2023 04/08/2024 School physical exam 08/03/2017 024 Immunizations Immunization Administration Dates Next Due Influenza, Injectable, Quadr ivalent, Contains Preservative 06/26/2017 Tetanus Toxoid, Reduced Diph theria Toxoid, and Acellular Pertussis Vaccine, Adsorbed 09/02/2023,06/26/2017 Social History Tobacco Use Types Packs/Day Years [...] 07/10/2024 7:00 PM EST Plan of Treatment Not on file Procedures * Due to [place] state law, this organization might not be sharing [...] to Health Maintenance Results * Due to [place] state law, this organization might not be sharing negative HIV tests. * Rapid COVID-19 for Surveillance - Psych/Admission (08/07/2024 3:20 AM EST) Pathologist [facility] PCR, SARS CoV-2 RNA Not Detected Not Detected CEPHEID GENEXPERT 08/07/2024 3:[address] [facility] Comment:A Not Detected (Nega tive) test result [...] AM EST 08/07/2024 3:22 AM EST Narrative [facility] - 08/07/2024 3:55 AM EST This test was developed, validated and its performance characteristics determined by [facility]. This test has not been cleared or approved by the U.S. Food and Drug Administration (FDA). FDA Policy for Diagnostic Tests for Coronavirus Disease-2019 during the Public Health Emergency issued August 18, 2019, is followed. Wilfred Shetty DO LAB BODY FLUIDS AND STOOLS OR DERABLES Final Result [facility] [address] [place] [id number], * (ABNORMAL) Drugs of Abuse Screen, Urine (07/11/2024 10:07 AM EST) [facility] Amphetamine Screen, Urine Negative Negative 07/11/2024 10:57 AM EST [facility] Comment: Detection limit of 1000 ng/mL of d-Methamphetamine. Drug results are to be used only for medical purposes. ??Unconfirmed screening results must not be used for non-medical purposes. Barbiturate Screen, Urine Negative Negative 07/11/2024 10:57 AM EST [facility] Comment: Detection limit of 200 ng/mL of Secobarbital. Drug results are to be used only for medical purposes. ??Unconfirmed screening results must not be used for non-medical purposes. Benzodiazepine Screen, Urine Negative Negative 07/11/2024 10:57 AM EST [facility] Comment: Detection limit of 200 ng/mL of Nordiazepam. Drug results are to be used only for medical purposes. ??Unconfirmed screening results must not be used for non-medical purposes. Buprenorphine Screen, Urine Negative Negative 07/11/2024 10:57 AM EST [facility] Comment: Detection limit of 10 ng/mL of norbuprenorphine. Drug results are to be used only for medical purposes. ??Unconfirmed screening results must not be used for non-medical purposes. Cocaine Metabolite Screen, Urine Negative Negative 07/11/2024 10:57 AM EST [facility] Comment: Detection limit of 300 ng/mL of Benzoylecgonine. Drug results are to be used only for medical purposes. ??Unconfirmed screening results must not be used for non-medical purposes. Marijuana Screen, Urine Presumptive Positive(A) Negative 07/11/2024 10:57 AM EST [facility] Comment: Detection limit of 50 ng/mL of 02-Vtc-[id number]-9-IKE-5-carboxylic acid. Drug results are to be used only for medical purposes. ??Unconfirmed screening results must not be used for non-medical purposes. Methadone Metabolite Screen, Urine Negative Negative 07/11/2024 10:57 AM EST [facility] Comment: Detection limit of 300 ng/mL of Methadone. Drug results are to be used only for medical purposes. ??Unconfirmed screening results must not be used for non-medical purposes. Oxycodone Screen, Urine Negative Negative 07/11/2024 10:57 AM EST [facility] Comment: Detection limit of 100 ng/mL of Oxycodone. Drug results are to be used only for medical purposes. ??Unconfirmed screening results must not be used for non-medical purposes. Opiate Screen, Urine Negative Negative 07/11/2024 10:57 AM EST [facility] Comment: Detection limit of 300 ng/mL of Morphine. Drug results are to be used only for medical purposes. ??Unconfirmed screening results must not be used for non-medical purposes. Fentanyl Screen, Urine Negative Negative 07/11/2024 10:57 AM EST [facility] Comment: Detection limit of 5 ng/mL of norfentanyl. Drug results are to be used only for medical purposes. ??Unconfirmed screening results must not be used for non-medical purposes. Urine Urine specimen collection, clean catch / Unknown Non-Blood Collection / Unknown 07/11/2024 10:07 AM EST 07/11/2024 10:12 AM EST us Mason Batista MD LAB URINE ORDERABLES Final Re sult [facility] [address] [place] [address], * COVID-19, Flu A/B & RSV RNA PCR, Symptomatic (07/10/2024 7:45 PM EST) Pathologist [facility] PCR, SARS CoV-2 RNA Not Detected Not Detected CEPHEID GENEXPERT 07/10/2024 8:33 PM EST [facility] Comment:A Not Detected (Nega tive) [...] A RNA PCR Not Detected Not Detected CEPRaySatID GENEXPERT 07/10/2024 8:33 PM EST [facility] Comment:Negative results do not preclude infection and should not be used as the sole basis for diagnosis, treatment or other patient management decisions. Negative results must be combined with clinical observations, patient history, and/or epidemiological information. Flu B RNA PCR Not Detected Not Detected CEPRaySatID GENEXPERT 07/10/2024 8:33 PM EST [facility] Comment:Negative results do not preclude infection and should not be used as the sole basis for diagnosis, treatment or other patient management decisions. Negative results must be combined with clinical observations, patient history, and/or epidemiological information. RSV RNA PCR Not Detected Not Detected CEPRaySatID GENEXPERT 07/10/2024 8:33 PM EST [facility] Comment:Negative results do not preclude infection and should not be used as the sole basis for diagnosis, treatment or other patient management decisions. Negative results must be combined with clinical observations, patient history, and/or epidemiological information. Swab (Nares) Non-Blood Collection / Unknown 07/10/2024 7:45 PM EST 07/10/2024 7:[address] [facility] - 07/10/2024 8:33 PM EST This test was developed, validated and its performance characteristics determined by [facility]. This test has not been cleared or approved by the U.S. Food and Drug Administration (FDA). FDA Policy for Diagnostic Tests for Coronavirus Disease-2019 during the Public Health Emergency issued August 18, 2019, is followed. Janelle Vázquez MD LAB BODY FLUIDS AND STOOLS ALISSON PEREZ Final Result [facility] - [address] [address], * Pap w/Reflex HPV, Outside Lab (11/12/2020) Brushing Cervix uteri structure / Unknown Eldon Bowens MD LAB PATHOLOGY/CYTOLOGY ORDERA BLES Final Result from Last 3 Months or Most Recently Relevant to Health Maintenance Insurance [facility] Care Teams Design Intern Relationship Specialty Start Date End Date Eldon Bowens MD PCP - General Family Medicine 11/25/20
--- OUTSIDE RECORDS SUMMARY | 2024-08-08 15:09 | XMS_ITS ---
Author Organization Eldon Bowens MD Address [address] [facility] [address] [place], [place] [id number] Care Team Providers Care Housing Inspector Name Role Phone Eldon Bowens Primary Care Provider REASON FOR VISIT f/u [facility], d/c 07/17 MEDICATIONS Medication SIG (Take, Route, Frequency, Duration) Notes Start Date End Date Status Albuterol Sulfate HFA 108 (90 Base) MCG/ACT 2 puffs as needed Inhalation every 4 hrs Active Encounters Encounter Location Date Provider Diagnosis Eldon Bowens MD [address] [place] [address] [address] [place], [place] [id number] 07/22/2024 Eldon Bowens PLAN OF TREATMENT No Information Progress Notes * Mala FELICIANOOB: 2 (34 yo F)Acc No.[id number]:07/22/2024 Progress Notes Patient:??Matilde FELICIANO Provider:??Eldon Bowens MD PC :1990?Age:34 Y?Sex:Fe male Date:07/22/2024 Address:[address] [place], [place] [id number] Subjective: * Chief Complaints: * ?1. f/u [facility], d/c 07/17. * Medical History:?? * Medications:??Taking Albuter ol Sulfate HFA 108 (90 Base) MCG/ACT Aerosol Solution 2 puffs as needed Inhalation every 4 hrs Objective: Assessment: Plan: * Treatment: * Images: * Sign off status: Pending * Provider:??Eldon Bowens MD Date:? ?07/22/2024
== END 2024-08-08 18:31 ==
PROVIDERS: Emergency Provider Emergency Medicine
DX: J45.909 Unspecified asthma, uncomplicated (principal); R50.9 Fever, unspecified; R05.8 Other specified cough
CPT/HCPCS: 0241U; 71046; 80053; 85025; 93005; 94640; 94664; 96361; 96374; 99284; J2919; J7120

== ENCOUNTER → 2024-08-08 12:45 | Outpatient (BNV) | payer MEDICAID, SELFPAY | PROVIDERS: Emergency Provider Emergency Medicine; Visit Provider Internal Medicine Cardiovascular Disease | DX: R00.0 Tachycardia, unspecified (principal); R06.09 Other forms of dyspnea | CPT/HCPCS: 93010 ==

== ENCOUNTER → 2024-08-08 12:50 | Outpatient (BNV) | payer MEDICAID, SELFPAY | PROVIDERS: Emergency Provider Emergency Medicine; Visit Provider Radiology Diagnostic Radiology | DX: R06.02 Shortness of breath (principal); R05.9 Cough, unspecified | CPT/HCPCS: 71046 ==